=== PATIENT | male | born 1960 | race Hispanic/Latino ===

== ENCOUNTER 2023-11-22 04:54 | Emergency (ER) | payer BC, MEDICARE ==
[~2023-11-22] VITALS: Ht 172.7 cm; Wt 90.7 kg
[2023-11-22 05:15] VITALS: TEMP 97.6
[2023-11-22] MEDS: FAMOTIDINE 20MG VIAL IV ONE (05:15)
[2023-11-22] MEDS: ONDANSETRON 4MG INJ IVP ONE (05:15)
[2023-11-22 05:22] LABS: BASOPHILS # (AUTO) 0.05 K/uL (0.00-0.20); BASOPHILS % (AUTO) 0.6 % (0.0-5.0); EOSINOPHILS # (AUTO) 0.17 K/uL (0.00-0.70); EOSINOPHILS % (AUTO) 1.9 % (0.0-8.0); IMMATURE GRANULOCYTE ABSOLUTE 0.04 K/uL (0-1); LYMPHOCYTES % (AUTO) 33.7 % (21.0-51.0); MEAN CORPUSCULAR HEMOGLOBIN 31.5 pg (27.0-33.0); MEAN CORPUSCULAR HGB CONC 33.9 g/dL (32.0-36.0); MONOCYTES # (AUTO) 0.6 K/uL (0.1-1.0); MONOCYTES % (AUTO) 6.3 % (3.0-13.0); NEUTROPHILS # (AUTO) 5.1 K/uL (1.8-7.7); PLATELET COUNT (AUTO) 283 K/uL (130-400); RED BLOOD CELL COUNT(AUTO) 4.73 MIL/uL (4.50-6.20); RED CELL DISTRIBUTION WIDTH 12.7 % (11.0-15.5); WHITE BLOOD COUNT (AUTO) 8.9 K/uL (4.8-10.8)
[2023-11-22 05:42] LABS: INR 0.96 (0.85-1.15); PROTHROMBIN TIME 10.4 SEC (9.6-11.6)
[2023-11-22 05:43] LABS: PARTIAL THROMBOPLASTIN TIME 27.2 SEC (26.3-35.5)
[2023-11-22] MEDS: 0.9%NACL 1000ML 1,000 ML IV ONE (05:44)
[2023-11-22 05:51] LABS: CREATININE 1.3 mg/dL (0.5-1.3); POTASSIUM 4.1 mmol/L (3.5-5.1)
[2023-11-22 05:56] LABS: ALBUMIN 3.7 g/dL (3.5-5.0); BILIRUBIN,DIRECT 0.1 mg/dL (0.0-0.3); BILIRUBIN,TOTAL 0.6 mg/dL (0.2-1.0); TOTAL PROTEIN, SERUM 6.8 g/dL (6.0-8.3)
[2023-11-22 06:42] VITALS: BP 121/71; PULSE 68; RESP 18; O2SAT 95
[2023-11-22 07:06] LABS: APPEARANCE,URINE CLEAR (CLEAR); BILIRUBIN,URINE NEGATIVE (NEGATIVE); COLOR,URINE LIGHT-YELLOW (YELLOW); GLUCOSE, URINE (UA) NEGATIVE (NEGATIVE); KETONES,URINE NEGATIVE (NEGATIVE); LEUKOCYTE ESTERASE ,URINE NEGATIVE Leu/uL (NEGATIVE); NITRATE,URINE NEGATIVE (NEGATIVE); OCCULT BLOOD,URINE NEGATIVE (NEGATIVE); PH,URINE 5.5 (5.0-8.0); PROTEIN,URINE 10 mg/dL (NEGATIVE); UROBILINOGEN,URINE 0.2 mg/dL (0.2-1.0)
[2023-11-22 07:18] LABS: ADD UA MICROSCOPIC YES
[2023-11-22 07:23] LABS: RBC,URINE 0-1 /HPF (0-1); WBC,URINE 0-1 /HPF (0-1)
[2023-11-22 07:24] LABS: BACTERIA,URINE Rare /HPF (None Seen); SQUAMOUS EPITHELIAL CELL,UR 0-2 /HPF (0-2)
[2023-11-22] MEDS ORDERED: DOCU-116 PO (07:45)
== END 2023-11-22 08:43 | disposition home or self-care (01) ==
LOC: EDH 04:54
DX: K59.00 Constipation, unspecified (principal); E11.9 Type 2 diabetes mellitus without complications; I10 Essential (primary) hypertension; E78.00 Pure hypercholesterolemia, unspecified; Z98.890 Other specified postprocedural states
CPT/HCPCS: 99284; 96374; 96375; 80076; 84484; 80048; 83690; 85025; 85610; 85730; 83605; 81001; 36415; 93005; 84145; J3490; J7030; J2405